=== PATIENT | female | born 1945 | race Caucasian/White ===

== ENCOUNTER 2022-09-22 15:21 | Emergency (ER) | payer OTHER ==
[2022-09-22 15:26] VITALS: TEMP 97.9; BMI 36.0
[2022-09-22 17:31] LABS: BASO % 1.1 % (0-2.0); EOS % 1.8 % (0-4.5); HEMATOCRIT 32.7 % (32.4-45.2); HEMOGLOBIN 10.2 GM/dL (10.7-15.3); MCH 26.9 pg (25.7-33.7); MCHC 31.3 g/dl (32.0-36.0); MEAN CELL VOLUME 85.8 fl (80-96); MEAN PLT VOLUME 8.7 fl (7.5-11.1); MONO % 6.9 % (3.8-10.2); NEUT % 71.2 % (42.8-82.8); PLATELET COUNT 280 10^3/uL (134-434); RBC 3.81 M/mm3 (3.60-5.2); RDW 18.1 % (11.6-15.6)
[2022-09-22 17:38] LABS: INR 1.55 (0.83-1.09); PROTHROMBIN TIME (PATIENT) 17.9 SEC (9.7-13.0)
[2022-09-22 17:41] LABS: ACTIVATED PTT 34.6 SECONDS (25.2-36.5)
[2022-09-22 17:55] LABS: CALCIUM 9.2 mg/dL (8.5-10.1)
[2022-09-22 17:56] LABS: ALBUMIN 3.4 g/dl (3.4-5.0); MAGNESIUM 2.2 mg/dL (1.8-2.4)
[2022-09-22 17:58] LABS: CREATININE 0.7 mg/dL (0.55-1.3)
[2022-09-22 18:00] LABS: BILIRUBIN,TOTAL 0.4 mg/dL (0.2-1); TOT PROT 6.9 g/dl (6.4-8.2)
[2022-09-22] MEDS ORDERED: ACETAMINOPHEN 1000 MG/100 ML BAG IVPB ONE (18:45)
[2022-09-22] MEDS ORDERED: ACETAMINOPHEN INJECTION 100 ML IVPB ONE (19:30)
[2022-09-22] MEDS ORDERED: DALBAVANCIN HCL 1,500 MG in DEXTROSE 5%-WATER - 500 ML IVPB ONE (20:01)
[2022-09-22 21:59] VITALS: BP 139/70; PULSE 60; RESP 18
== END 2022-09-23 00:42 | disposition home or self-care (01) ==
LOC: JER 15:21
PROC: 3E0333Z Introduction of Anti-inflammatory into Peripheral Vein, Percutaneous Approach (ICD-10-PCS; principal; 2022-09-22)
PROC: 3E03329 Introduction of Other Anti-infective into Peripheral Vein, Percutaneous Approach (ICD-10-PCS; 2022-09-22)
DX: L97.519 Non-pressure chronic ulcer of other part of right foot with unspecified severity (principal); M71.21 Synovial cyst of popliteal space [Baker], right knee; L03.115 Cellulitis of right lower limb
CPT/HCPCS: 0241U-QW; 36415; 80053; 83735; 85025; 85610; 85730; 86850; 86900; 86901; 87040; 93005; 93010; 93971-TC; 96374; 96375; 99285-25; J0875